=== PATIENT | male | born 1995 | race African-American/Black ===

== ENCOUNTER → 2020-11-05 | Emergency (ER) | payer MEDICAID ==
[~2020-11-05] VITALS: Ht 180.3 cm; Wt 104.3 kg
[~2020-11-05] MED LIST: SULF1TAB48 PO
[2020-11-05 11:59] VITALS: BP 122/76
--- NOTE | 2020-11-05 12:02 | NUR ---
unable to discharge due to meditech problem.
--- NOTE | 2020-11-05 12:02 | NUR ---
Patient discharged to home in stable condition. Written and verbal after care instructions given. Patient verbalizes understanding of instruction.
== END | disposition home or self-care (01) ==
LOC: ER 12:04
DX: L03.113 Cellulitis of right upper limb (principal); J45.909 Unspecified asthma, uncomplicated; Z90.89 Acquired absence of other organs; Z79.899 Other long term (current) drug therapy

== ENCOUNTER 2020-11-09 08:20 | Emergency (ER) | payer MEDICAID ==
[~2020-11-09] VITALS: Ht 180.3 cm; Wt 104.3 kg
[2020-11-09 08:34] VITALS: BP 136/77
[2020-11-09] MEDS ORDERED: SULF1TAB48 PO (08:42)
--- NOTE | 2020-11-09 08:55 | NUR ---
Patient discharged to home in stable condition. Written and verbal after care instructions given. Patient verbalizes understanding of instruction.
== END 2020-11-09 08:55 | disposition home or self-care (01) ==
LOC: ER 08:25
DX: L03.114 Cellulitis of left upper limb (principal); J45.909 Unspecified asthma, uncomplicated; Z90.89 Acquired absence of other organs; Z60.2 Problems related to living alone

== ENCOUNTER → 2020-12-26 | Emergency (ER) | payer OTHER ==
[~2020-12-26] VITALS: Ht 180.3 cm; Wt 104.3 kg
[~2020-12-26] MED LIST changes: +HYDR25SU33 RC
--- NOTE | 2020-12-26 17:45 | NUR ---
BIB SELF C/O BLOOD IN THE STOOL AND RIGHT ANKLE SWELLING FOR 7 MONTHS. THE PATIENT IS ALERT AND ORIENTED X3. DENIES SOB. RESPIRATION REGULAR AND UNLABORED. WARM BLAMKET PROVIDED FOR COMFORT. WILL CONTINUE TO MONITOR.
[2020-12-26 18:51] VITALS: BP 120/77
--- NOTE | 2020-12-26 18:52 | NUR ---
The patient is alert and oriented x3. Denies pain. In room air and denies SOB. Respiration regular and unlabored. Patient discharged to home in stable condition. Written and verbal after care instructions given. Patient verbalizes understanding of instruction. The patient left ER in stable condition.
[2020-12-26 19:05] LABS: OCCULT BLOOD STOOL NEGATIVE (NEGATIVE)
== END | disposition home or self-care (01) ==
LOC: ER 17:20
DX: K62.5 Hemorrhage of anus and rectum (principal); K64.9 Unspecified hemorrhoids; J45.909 Unspecified asthma, uncomplicated; Z98.890 Other specified postprocedural states; Z60.2 Problems related to living alone; Z79.899 Other long term (current) drug therapy
CPT/HCPCS: 82272-TC

== ENCOUNTER 2021-03-11 00:23 | Emergency (ER) | payer MEDICAID, OTHER ==
[~2021-03-11] VITALS: Ht 180.3 cm; Wt 104.3 kg
[2021-03-11 01:34] LABS: BASOPHILS # (AUTO) 0.1 /CMM (0.0-0.2); BASOPHILS % (AUTO) 0.8 % (0.0-2.0); EOSINOPHILS % (AUTO) 6.7 % (0.0-6.0); HEMATOCRIT 38 % (39-51); HEMOGLOBIN 13.5 g/dL (13.5-17.5); LYMPHOCYTES # (AUTO) 4.2 /CMM (0.8-4.8); LYMPHOCYTES % (AUTO) 47.5 % (20.0-44.0); MEAN CORPUSCULAR HGB CONC 36 g/dl (31.0-36.0); MEAN CORPUSCULAR VOLUME 86 fL (80-96); MONOCYTES # (AUTO) 0.6 /CMM (0.1-1.30); MONOCYTES % (AUTO) 7.1 % (2.0-12.0); NEUTROPHILS # (AUTO) 3.3 /CMM (1.8-8.9); NEUTROPHILS % (AUTO) 37.9 % (43.0-81.0); PLATELET COUNT (AUTO) 249 /CMM (150-450); RED BLOOD CELL COUNT(AUTO) 4.41 MIL/uL (4.5-6.0); WHITE BLOOD COUNT (AUTO) 8.8 K/uL (4.3-11.0)
[2021-03-11 02:17] LABS: CALCIUM, SERUM 8.5 mg/dL (8.5-10.1); CREATININE 1.2 mg/dL (0.6-1.3); POTASSIUM 4.2 mmol/L (3.5-5.1)
[2021-03-11 02:31] LABS: ALBUMIN 3.5 g/dL (3.4-5.0); BILIRUBIN,DIRECT 0.1 mg/dL (0.0-0.2); BILIRUBIN,TOTAL 0.3 mg/dL (0.2-1.0); TOTAL PROTEIN, SERUM 6.8 g/dL (6.4-8.2)
[2021-03-11 02:53] VITALS: BP 129/71
== END 2021-03-11 02:54 | disposition home or self-care (01) ==
LOC: ER 00:24
DX: R60.0 Localized edema (principal); J45.909 Unspecified asthma, uncomplicated; Z90.89 Acquired absence of other organs; Z60.2 Problems related to living alone; Z79.899 Other long term (current) drug therapy
CPT/HCPCS: 36415; 71045-TC; 80048-TC; 80076-TC; 83880; 85025-TC; 85730-TC; 93970-TC

== ENCOUNTER 2022-06-22 14:03 | Emergency (ER) | payer OTHER ==
[~2022-06-22] VITALS: Ht 182.9 cm; Wt 122.5 kg
[2022-06-22] MEDS ORDERED: HYDR-3972 PO (14:45)
[2022-06-22] MEDS ORDERED: IBUP-1957 PO (14:45)
[2022-06-22] MEDS ORDERED: KETOROLAC TROMETHAMINE INJ 60 MG/2 ML VIAL IM ONE ×2 (14:52→15:00)
[2022-06-22 15:36] VITALS: BP 138/80
--- NOTE | 2022-06-22 15:36 | NUR ---
Patient discharged to home in stable condition. Written and verbal after care instructions given. Patient verbalizes understanding of instruction.
== END 2022-06-22 15:37 | disposition home or self-care (01) ==
LOC: ER 14:11
DX: M25.561 Pain in right knee (principal); J45.909 Unspecified asthma, uncomplicated; F17.200 Nicotine dependence, unspecified, uncomplicated; Z79.899 Other long term (current) drug therapy
CPT/HCPCS: 99283; 96372; J1885